=== PATIENT | male | born 1955 | race Caucasian/White ===

== ENCOUNTER → 2016-10-29 | Outpatient (CLI) | payer OTHER | END | disposition home or self-care (01) | LOC: PCVCIMAG 10:38 | PROVIDERS: ATTEND Internal Medicine Cardiovascular Disease | DX: I25.10 Atherosclerotic heart disease of native coronary artery without angina pectoris (principal); I25.5 Ischemic cardiomyopathy; I44.7 Left bundle-branch block, unspecified; Z95.0 Presence of cardiac pacemaker; Z95.5 Presence of coronary angioplasty implant and graft | CPT/HCPCS: 93005; 93306 ==

== ENCOUNTER → 2017-05-06 | Outpatient (CLI) | payer OTHER ==
[~2017-05-06] MED LIST: REGADENOSON 0.4 MG/5 ML DISP.SYRIN. IV ONE
--- NOTE | 2017-05-06 13:37 | PCVCIMAG ---
APPROVED REPORT Exam: Nuclear Stress Test Indication: Dyspnea Patient Location: Out-Patient Stress Nurse: Kailyn Sun RN, Maame Noble RN SC Tech:Becky CHRISTEN Perez Ht: 5 ft 8 in Wt: 230 lbs BSA: 2.17 m2 HR: 102 bpm BP: 177/95 mmHg BMI: 34.9 Rhythm: Paced Medical History Medical History: Hyperlipidemia, HTN, Diabetic Insulin, CAD, Age, Former Smoker Medications: Coreg, Atorvastatin, Plavix, Amaryl, Insulin, Entresto Allergies: ASA, NSAIDS Previous Cardiac Procedures: PCI Pretest Chest Pain Characteristics: No chest pain Exercise History: Sedentary Physical Disabilities: Feet Meds Held (24 hrs): Carvedilol Stress Test Details Stress Test: Pharmacologic stress testing performed using 0.4 mg of regadenoson per 5 mL given IV over 10 seconds. Reason for pharmacologic stress test: physical limitation, Neuropathy - feet. HR Resting HR: 102 bpmMax Heart Rate (APMHR): 159 bpm Max HR Achieved: 114 bpmTarget HR (85% APMHR): 135 bpm % of APMHR: 71 Recovery HR: 109 bpm BP Resting BP: 177/95 mmHg Max BP: 150/80 mmHg ECG Resting ECG: Paced Rhythm Stress ECG: Paced Rhythm ST Change: Nondiagnostic V-pacing Arrhythmia: VPC's Recovery ECG: Paced Rhythm Clinical Reason for Termination: Completed protocol Stress Symptoms: Mild Dyspnea, Mild Light-headedness Exercise duration: 0 min 55 sec Exercise capacity: 1.0 METs Symptoms resolved during recovery. SC EXAM: Myocardial Perfusion REST/STRESS Imaging Protocol: Rest Tc-99m/Stress Tc-99m 1 day Resting Data Rest SPECT myocardial perfusion imaging was performed in supine position 45 minutes following the intravenous injection of 15.4 mCi of Tc-99m Sestamibi. Time of rest injection: 0930 Date: 05/06/2017 Administration Route: IV Administration Site: Right Arm Pharmacologic Stress Pharmacologic stress test was performed by injecting Regadenoson 0.4 mg IV push followed by the intravenous injection of 45.1 mCi of Tc-99m Sestamibi. Time of stress injection: 1030 Date: 05/06/2017 Administration Route: IV Administration Site: Right Arm Gated Stress SPECT was performed 45 minutes after stress injection. The images were gated to evaluate regional wall motion and calculate left ventricular ejection fraction. Study Quality Study: Good Artifact: Mild Diaphragmatic artifact Study Data Post stress, the left ventricular ejection was 40%.. SSS: 0 SRS: 3 SDS: 0 TID = 1.16. Perfusion There is a medium area of mildly reduced uptake in the basal and mid segment of the inferior wall which is seen on the stress images as well as the resting images. This area is hypokinetic and is most consistent with attenuation artifact. Wall Motion Mild to moderately decreased left ventricular systolic function. Nuclear Conclusion ECG Findings: non-diagnostic Clinical Findings: non-diagnostic Nuclear Findings: negative for ischemia This study is of low probability for inducible ischemia or prior infarct. Mild to moderately decreased LV systolic dysfunction. Artifact: Mild Diaphragmatic artifact
== END | disposition home or self-care (01) ==
LOC: PCVCIMAG 09:19
PROVIDERS: ATTEND Internal Medicine Cardiovascular Disease
DX: I11.0 Hypertensive heart disease with heart failure (principal); I25.10 Atherosclerotic heart disease of native coronary artery without angina pectoris; I50.9 Heart failure, unspecified; I42.9 Cardiomyopathy, unspecified; E11.9 Type 2 diabetes mellitus without complications; I44.7 Left bundle-branch block, unspecified; R06.00 Dyspnea, unspecified; E78.5 Hyperlipidemia, unspecified; Z87.891 Personal history of nicotine dependence
CPT/HCPCS: 78452; 93017; A9500; J2785

== ENCOUNTER → 2018-05-05 | Outpatient (CLI) | payer OTHER | END | disposition home or self-care (01) | LOC: PCVCCLINIC 12:53 | PROVIDERS: ATTEND Internal Medicine Cardiovascular Disease | DX: E78.5 Hyperlipidemia, unspecified (principal); I25.10 Atherosclerotic heart disease of native coronary artery without angina pectoris; I10 Essential (primary) hypertension; E11.9 Type 2 diabetes mellitus without complications; E78.00 Pure hypercholesterolemia, unspecified; Z79.84 Long term (current) use of oral hypoglycemic drugs; Z87.891 Personal history of nicotine dependence | CPT/HCPCS: 36415 ==

== ENCOUNTER → 2018-06-08 | Outpatient (CLI) | payer OTHER, MEDICARE ==
--- NOTE | 2018-06-08 14:00 | PCVCIMAG ---
APPROVED REPORT Study performed: 06/08/2018 12:38:26 EXAM: Comprehensive 2D, Doppler, and color-flow Echocardiogram Patient Location: Echo lab Status: routine BSA: 2.13 HR: 101 bpmBP: 116/74 mmHg Rhythm: NSR Other Information Study Quality: Adequate Risk Factors: Cardiac Risk Factors: HTN Indications Pacemaker CAD Cardiomyopathy 2D Dimensions IVSd: 10.59 (7-11mm) LVDd: 48.85 mm PWd: 11.17 (7-11mm)Ascending Ao: 31.84 (22-36mm) LVDs: 43.77 (25-40mm) Left Atrium: 39.42 (27-40mm) Aortic Root: 30.70 mm LV Single Plane 4CH: 31.09 % LV Single Plane 2CH: 44.53 % Biplane EF: 38.1 % Volumes Left Atrial Volume (Systole) Single Plane 4CH: 45.37 mLSingle Plane 2CH: 43.81 mL LA ESV Index: 24.00 mL/m2 Aortic Valve AoV Peak Delroy.: 1.05 m/s AO Peak Gr.: 4.42 mmHgLVOT Max P.34 mmHg LVOT Max V: 0.76 m/s Mitral Valve IVRT: 110.73 ms Pulmonary Valve PV Peak Delroy.: 0.90 m/sPV Peak Gr.: 3.26 mmHg Pulmonary Vein P Vein S: 0.32 m/sP Vein A: 0.39 m/s P Vein D: 0.39 m/sP Vein A Dur.: 114.2 msec P Vein S/D Ratio: 0.82 Left Ventricle The left ventricle is normal size. There is normal LV segmental wall motion. There is normal left ventricular wall thickness. Left ventricular systolic function is mild to moderately decreased. LVEF is 40-45%. Grade I - abnormal relaxation pattern. Right Ventricle The right ventricle is normal size. The right ventricular systolic function is normal. Pacemaker lead is present in the right ventricle. Atria The left atrium size is normal. The right atrium size is normal. Pacemaker lead is present in the right atrium. Aortic Valve The aortic valve is normal in structure. No aortic regurgitation is present. There is no aortic valvular stenosis. Mitral Valve The mitral valve is normal in structure. There is no mitral valve regurgitation noted. No evidence of mitral valve stenosis. Tricuspid Valve The tricuspid valve is normal in structure. There is no tricuspid valve regurgitation noted. Pulmonic Valve The pulmonary valve is normal in structure. There is no pulmonic valvular regurgitation. Great Vessels The aortic root is normal in size. IVC is normal in size and collapses >50% with inspiration. Pericardium There is no pericardial effusion. There is no pleural effusion. <Conclusion> The left ventricle is normal size. There is normal left ventricular wall thickness. Left ventricular systolic function is mild to moderately decreased. Grade I - abnormal relaxation pattern. The right ventricle is normal size. Pacemaker lead is present in the right ventricle. The right atrium size is normal. Pacemaker lead is present in the right atrium. The aortic valve is normal in structure. There is no mitral valve regurgitation noted. There is no tricuspid valve regurgitation noted.
== END | disposition home or self-care (01) ==
LOC: PCVCIMAG 13:12
PROVIDERS: ATTEND Internal Medicine Cardiovascular Disease
DX: I25.10 Atherosclerotic heart disease of native coronary artery without angina pectoris (principal); I42.9 Cardiomyopathy, unspecified; I10 Essential (primary) hypertension; Z95.810 Presence of automatic (implantable) cardiac defibrillator
CPT/HCPCS: 93306